=== PATIENT | male | born 2000 | race Caucasian/White ===

== ENCOUNTER 2023-11-29 14:38 | Emergency (ER) | payer BC, SELFPAY ==
[2023-11-29 14:44] VITALS: RESP 15
[2023-11-29 14:51] VITALS: BP 136/89; PULSE 98; TEMP 36.7; O2SAT 99
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
[2023-11-29 15:54] VITALS: BP 131/87; PULSE 97; RESP 16; TEMP 36.7; O2SAT 100
== END 2023-11-29 15:54 | disposition home or self-care (01) ==
PROVIDERS: Emergency Provider Physician Assistant; Family Provider Family Medicine
DX: S00.83XA Contusion of other part of head, initial encounter (principal); S22.038A Other fracture of third thoracic vertebra, initial encounter for closed fracture; Z72.0 Tobacco use; S00.81XA Abrasion of other part of head, initial encounter; Y04.2XXA Assault by strike against or bumped into by another person, initial encounter
CPT/HCPCS: 70450; 70486; 72100; 72125; 72128; 99284